=== PATIENT | male | born 1950 | race Caucasian/White ===

== ENCOUNTER → 2018-09-17 | Outpatient (CLI) | payer OTHER ==
[~2018-09-17] MED LIST: IOPAMIDOL (ISOVUE 370) 100 ML BTL IV ONE
== END ==
LOC: FIMAGING 14:39
PROVIDERS: ATTEND Internal Medicine
DX: R59.9 Enlarged lymph nodes, unspecified (principal); E04.1 Nontoxic single thyroid nodule; I25.10 Atherosclerotic heart disease of native coronary artery without angina pectoris
CPT/HCPCS: 82565-PO; Q9967

== ENCOUNTER 2019-04-03 11:06 | Inpatient (IN) | payer OTHER | END 2019-04-13 15:55 | disposition home health service (06) | LOC: F2N 04-04 00:10 → F2W 04-07 14:00 → F2N 04-04 06:22 → F2W 12:05 ==